=== PATIENT | male | born 1955 | race Caucasian/White ===

== ENCOUNTER 2019-04-12 05:31 | Emergency (ER) | payer OTHER ==
[~2019-04-12] VITALS: Ht 188 cm; Wt 104.3 kg
[2019-04-12] MEDS ORDERED: PROMETHAZINE HCL 25 MG/ML 1ML IV ONE ×2 (06:00→07:15)
[2019-04-12 06:55] LABS: Basophils # (auto) 0 uL; Basophils % (auto) 0.6 % (0.0-2.0); Eosinophils # (auto) 0.2 uL; Eosinophils % (auto) 2.1 % (0.0-7.0); Lymphocytes # (auto) 0.8 uL; Lymphocytes % (auto) 10.4 % (10.0-50.0); Mean Corpuscular Hemoglobin 30.9 pg (28.0-32.0); Mean Corpuscular Volume 90.7 fL (80.0-100.0); Monocytes # (auto) 0.9 uL; Monocytes % (auto) 11.6 % (0.0-12.0); Neutrophils # (auto) 5.8 uL; Neutrophils % (auto) 75.3 % (37.0-80.0); Platelet Count (auto) 223 10^3/uL (140-450); Red Blood Cells 4.85 10^6/uL (4.5-5.90); Red Cell Distribution Width 15.6 % (11.8-14.3); White Blood Cell 7.8 10^3/uL (4.4-10.8)
[2019-04-12] MEDS ORDERED: SODIUM CHLORIDE 0.9% 1,000 ML IV ONE ×2 (07:11)
[2019-04-12 07:16] LABS: Albumin 3.2 g/dL (3.4-5.0); Calcium 9.5 mg/dL (8.5-10.1); Potassium 3.8 mmol/L (3.5-5.1)
[2019-04-12 07:19] LABS: BUN/Creatinine Ratio 18.8; Bilirubin, Total 4.3 mg/dL (0.2-1.0); Total Protein 7.4 g/dL (6.4-8.2)
[2019-04-12] MEDS ORDERED: PROCHLORPERAZINE EDISYLATE 5 MG/ML 2ML VIAL ONE (08:56)
[2019-04-12] MEDS ORDERED: FAMOTIDINE (10MG/ML) 2ML VL IV ONE (09:00)
[2019-04-12] MEDS ORDERED: PROCHLORPERAZINE EDISYLATE 5 MG/ML 2ML VIAL IV ONE (09:00)
[2019-04-12 10:00] VITALS: BP 130/75
== END 2019-04-12 11:23 | disposition home or self-care (01) ==
LOC: ER 05:31
DX: K86.89 Other specified diseases of pancreas (principal); R74.8 Abnormal levels of other serum enzymes; R11.2 Nausea with vomiting, unspecified; I10 Essential (primary) hypertension; Z90.49 Acquired absence of other specified parts of digestive tract
CPT/HCPCS: 36415; 74018; 80053; 84484; 85025; 93005; 96361; 96374; 96375; 96376; 99284; J0780; J2550; J3490; J7030

== ENCOUNTER 2019-04-21 23:34 | Inpatient (IN) | payer OTHER ==
[~2019-04-21] VITALS: Ht 188 cm; Wt 106.0 kg
[2019-04-22 01:11] LABS: Basophils # (auto) 0 uL; Basophils % (auto) 0.4 % (0.0-2.0); Eosinophils # (auto) 0 uL; Eosinophils % (auto) 0.3 % (0.0-7.0); Hemoglobin 13.4 g/dL (13.5-17.5); Lymphocytes # (auto) 0.7 uL; Lymphocytes % (auto) 8.2 % (10.0-50.0); Mean Corpuscular Hgb Conc. 34.4 g/dL (32.0-36.0); Mean Corpuscular Volume 90.2 fL (80.0-100.0); Monocytes % (auto) 11.3 % (0.0-12.0); Neutrophils % (auto) 79.8 % (37.0-80.0); Nucleated Red Blood Cells % 0.1 %; Platelet Count (auto) 180 10^3/uL (140-450); Red Blood Cells 4.32 10^6/uL (4.5-5.90); Red Cell Distribution Width 15.1 % (11.8-14.3); White Blood Cell 8.8 10^3/uL (4.4-10.8)
[2019-04-22 01:27] LABS: INR 1.06 (0.9-1.15); Partial Thromboplastin Time 29.4 sec (23.64-32.05)
[2019-04-22 01:30] LABS: Albumin 2.8 g/dL (3.4-5.0); Anion Gap 9 (5-15); BUN/Creatinine Ratio 9.5; Blood Urea Nitrogen 10 mg/dL (7-18); Calcium 8.2 mg/dL (8.5-10.1); Carbon Dioxide 23 mmol/L (21-32); Chloride 105 mmol/L (98-107); GFR African American 92 mL/min; GFR Non-African American 76 mL/min; Glucose 108 mg/dL (74-106); Potassium 3.8 mmol/L (3.5-5.1); Sodium 137 mmol/L (136-145)
[2019-04-22 01:35] LABS: Alanine Aminotransferase 79 U/L (16-61); Alkaline Phosphatase 117 U/L (45-117); Aspartate Aminotransferase 48 U/L (15-37); Bilirubin, Total 1.8 mg/dL (0.2-1.0); Total Protein 7.3 g/dL (6.4-8.2)
[2019-04-22] MEDS ORDERED: FAMOTIDINE (10MG/ML) 2ML VL IV ONE (02:30)
[2019-04-22] MEDS ORDERED: METOCLOPRAMIDE HCL 5MG/ml INJ 2ml VIAL IV ONE (02:30)
[2019-04-22] MEDS ORDERED: SODIUM CHLORIDE 0.9% 1,000 ML IV ONE (02:30)
[2019-04-22 02:51] LABS: Amylase 56 U/L (25-115); Lipase 369 U/L (73-393)
[2019-04-22] MEDS ORDERED: HYDROcodone-ACET 5/325MG TAB PO PRN (05:45)
[2019-04-22] MEDS ORDERED: TEMAZEPAM 15 MG CAP PO PRN (05:45)
[2019-04-22] MEDS ORDERED: MORPHINE SULFATE 4 MG/ML SYR/VIAL IV PRN (05:45)
[2019-04-22] MEDS ORDERED: ONDANSETRON HCL 4 MG/2 ML VIAL IV PRN (05:45)
[2019-04-22] MEDS ORDERED: ACETAMINOPHEN 325 MG TAB PO PRN (05:45)
[2019-04-22 06:48] LABS: Urine Bacteria NONE SEEN /hpf (None Seen); Urine Blood Negative /uL (Negative); Urine Hyaline Cast FEW /lpf (0 - 2); Urine Mucus FEW (None Seen); Urine Specific Gravity 1.021 (1.001-1.035); Urine WBC 1 /hpf (0 - 3)
[2019-04-22] MEDS: LEVOTHYROXINE SODIUM 25 MCG TAB PO SCH (07:05)
--- NOTE | 2019-04-22 08:12 | NUR ---
RECEIVED REPORT FROM PATRICIA GALAN.
--- NOTE | 2019-04-22 08:20 | NUR ---
MS admit from ER [facility] admitted to tele/MS after SBAR received. Patient oriented to DUKE GAN, primary RN, unit, room, bed, and unit policies regarding patient care and visiting hours. Patient weighed by bedscale and encouraged to call if they need something. All questions and concerns addressed, patient verbalized understanding.
[2019-04-22 09:00] VITALS: BP 113/67
[2019-04-22] MEDS: cefTRIAXone 1GM/50ML D5W 50 ML IV SCH (09:11)
[2019-04-22] MEDS: FAMOTIDINE 20 MG TAB PO SCH ×2 (09:59→21:10)
[2019-04-22 10:49] VITALS: BP 113/67
[2019-04-22 13:00] VITALS: BP 113/72
[2019-04-22 17:00] VITALS: BP 118/56
--- NOTE | 2019-04-22 19:20 | NUR ---
Opening Shift Note Report received from day shift RN. Assumed care of patient. Patient awake sitting in bed and alert x4. No S/S of distress/SOB noted. Patient denies pain and nausea at this time. Instructed on POC and to call for assist PRN. Call light left within reach. Will continue to monitor for changes Q1hr and PRN.
[2019-04-22 22:00] VITALS: BP 101/56
[2019-04-23 05:21] LABS: Basophils # (auto) 0.1 uL; Basophils % (auto) 0.7 % (0.0-2.0); Eosinophils # (auto) 0.2 uL; Eosinophils % (auto) 2.2 % (0.0-7.0); Hematocrit 34.7 % (41.0-53.0); Hemoglobin 11.9 g/dL (13.5-17.5); Lymphocytes # (auto) 1.2 uL; Lymphocytes % (auto) 16.4 % (10.0-50.0); Mean Corpuscular Hemoglobin 31.1 pg (28.0-32.0); Mean Corpuscular Hgb Conc. 34.4 g/dL (32.0-36.0); Mean Corpuscular Volume 90.3 fL (80.0-100.0); Monocytes # (auto) 0.9 uL; Neutrophils # (auto) 4.8 uL; Neutrophils % (auto) 67.7 % (37.0-80.0); Platelet Count (auto) 132 10^3/uL (140-450); Red Blood Cells 3.84 10^6/uL (4.5-5.90); Red Cell Distribution Width 15.1 % (11.8-14.3); White Blood Cell 7.1 10^3/uL (4.4-10.8)
[2019-04-23 05:42] LABS: Albumin 2.5 g/dL (3.4-5.0); Calcium 8.1 mg/dL (8.5-10.1); Potassium 3.9 mmol/L (3.5-5.1)
[2019-04-23 05:43] LABS: BUN/Creatinine Ratio 9.3
[2019-04-23 05:52] LABS: Bilirubin, Total 1.3 mg/dL (0.2-1.0); Total Protein 6.5 g/dL (6.4-8.2)
[2019-04-23 06:04] VITALS: BP 114/58
[2019-04-23] MEDS: LEVOTHYROXINE SODIUM 25 MCG TAB PO SCH (06:28)
--- NOTE | 2019-04-23 07:20 | NUR ---
Opening Shift Note Received report from NOC RN and this RN/rack carrier introduced to patient. Patient awake, alert and oriented sitting up in bed without S/S of distress. Discussed POC with patient, who verbalized understanding and knows to call if needing further assistance.
[2019-04-23 08:05] VITALS: BP 102/64
[2019-04-23 09:00] VITALS: BP 102/64
--- NOTE | 2019-04-23 10:25 | NUR ---
[employer] Carolynn at bedside with patient for dietary consult.
[2019-04-23] MEDS: FAMOTIDINE 20 MG TAB PO SCH (10:27)
[2019-04-23] MEDS: cefTRIAXone 1GM/50ML D5W 50 ML IV SCH (10:27)
--- NOTE | 2019-04-23 10:30 | NUR ---
Dr. Booth at bedside discussing plan of care with patient.
[2019-04-23 11:46] VITALS: BP 102/64
[2019-04-23 12:00] VITALS: BP 115/74
--- NOTE | 2019-04-23 13:20 | NUR ---
Discharge Note Discharge instructions given as ordered. Encourage to follow up with PMD as instructed. All questions and concerns addressed. Patient verbalized understanding. Medication reconciliation form completed and copy given to patient.IV removed with catheter intact, pressure dressing applied. Patient taken to vehicle via wheelchair with all personal belongings, accompanied by staff. No distress noted at time of departure.
== END 2019-04-23 13:20 | disposition home or self-care (01) | DRG 861 ==
LOC: ER 23:34 → EDBD 23:34 → OBSVTOIN 23:35 → OVERFLOW 23:35 → WEST WING 04-22 08:49
PROVIDERS: ADMIT Nurse Practitioner; ATTEND Internal Medicine Pulmonary Disease
DX: G89.3 Neoplasm related pain (acute) (chronic) (principal); E43 Unspecified severe protein-calorie malnutrition; C25.9 Malignant neoplasm of pancreas, unspecified; K72.90 Hepatic failure, unspecified without coma; N28.1 Cyst of kidney, acquired; R16.1 Splenomegaly, not elsewhere classified; E03.9 Hypothyroidism, unspecified; K40.20 Bilateral inguinal hernia, without obstruction or gangrene, not specified as recurrent; E78.5 Hyperlipidemia, unspecified; I10 Essential (primary) hypertension; J98.11 Atelectasis; Z85.07 Personal history of malignant neoplasm of pancreas; Z90.49 Acquired absence of other specified parts of digestive tract; Z79.899 Other long term (current) drug therapy
CPT/HCPCS: 36415; 71045; 74176; 76775; 80053; 81001; 82150; 83690; 84484; 85025; 85610; 85730; 93005; 96361; 96374; 96375; G0378; J0696; J2405; J3490

== ENCOUNTER 2019-05-11 15:38 | Inpatient (IN) | payer OTHER ==
[~2019-05-11] VITALS: Ht 182.9 cm; Wt 95.4 kg
[2019-05-11] MEDS ORDERED: SODIUM CHLORIDE 0.9% 1,000 ML IV ONE (19:55)
[2019-05-11 21:17] LABS: Basophils # (auto) 0.2 uL; Basophils % (auto) 1.1 % (0.0-2.0); Eosinophils # (auto) 0.6 uL; Eosinophils % (auto) 3.8 % (0.0-7.0); Hematocrit 44.7 % (41.0-53.0); Hemoglobin 15.6 g/dL (13.5-17.5); Lymphocytes # (auto) 2.1 uL; Lymphocytes % (auto) 14.2 % (10.0-50.0); Mean Corpuscular Hemoglobin 30.7 pg (28.0-32.0); Mean Corpuscular Hgb Conc. 34.9 g/dL (32.0-36.0); Mean Corpuscular Volume 87.9 fL (80.0-100.0); Monocytes # (auto) 1.6 uL; Monocytes % (auto) 10.8 % (0.0-12.0); Neutrophils # (auto) 10.3 uL; Neutrophils % (auto) 70.1 % (37.0-80.0); Nucleated Red Blood Cells % 0.3 %; Platelet Count (auto) 305 10^3/uL (140-450); Red Blood Cells 5.08 10^6/uL (4.5-5.90); Red Cell Distribution Width 14.9 % (11.8-14.3); White Blood Cell 14.7 10^3/uL (4.4-10.8)
[2019-05-11 21:38] LABS: Albumin 3.6 g/dL (3.4-5.0); Magnesium 3.3 mg/dL (1.6-2.6); Potassium 3.2 mmol/L (3.5-5.1)
[2019-05-11 21:42] LABS: BUN/Creatinine Ratio 36.6; Bilirubin, Total 1.1 mg/dL (0.2-1.0)
[2019-05-11] MEDS ORDERED: POTASSIUM CHL 20MEQ/100ML 100 ML IV ONE (22:00)
[2019-05-11] MEDS ORDERED: ONDANSETRON HCL 4 MG/2 ML VIAL IV PRN (23:45)
[2019-05-11] MEDS ORDERED: SODIUM CHLORIDE 0.9% 1,000 ML IV SCH (23:45)
[2019-05-11] MEDS ORDERED: PPN PER PHARMACY 0 ML IV SCH (23:45)
[2019-05-11] MEDS ORDERED: TEMAZEPAM 15 MG CAP PO PRN (23:45)
[2019-05-11] MEDS ORDERED: ACETAMINOPHEN 325 MG TAB PO PRN (23:45)
[2019-05-11] MEDS ORDERED: HYDROcodone-ACET 5/325MG TAB PO PRN (23:45)
[2019-05-12] MEDS ORDERED: SODIUM CHLORIDE 0.9% 500 ML IV ONE (01:45)
[2019-05-12 02:25] VITALS: BP 112/62
--- NOTE | 2019-05-12 02:25 | NUR ---
MS admit from [facility] admitted MS unit. Patient oriented to unit, room, bed, and unit policies regarding patient care and visiting hours. Patient weighed by bed scale and encouraged to call if they need something. All questions and concerns addressed, patient verbalized understanding.
[2019-05-12] MEDS ORDERED: cefTRIAXone 1GM/50ML D5W 50 ML IV SCH ×2 (02:30→21:00)
[2019-05-12 04:47] VITALS: BP 115/61
[2019-05-12] MEDS ORDERED: OXY5T PO (04:49)
[2019-05-12] MEDS ORDERED: DOCU100T15 PO (04:49)
[2019-05-12] MEDS ORDERED: LEVO25TA6 PO (04:49)
[2019-05-12] MEDS: SODIUM CHLORIDE 0.9% 1,000 ML IV SCH ×2 (04:49→12:52)
[2019-05-12] MEDS ORDERED: LEVOTHYROXINE SODIUM 25 MCG TAB PO SCH (06:00)
--- NOTE | 2019-05-12 07:15 | NUR ---
Open Shift Note Received report on patient, awake and sitting up in bed. Patient shows no signs of distress at this time and states having no pain. Discussed POC with patient and pending consults. Patient states he needs to go home today because he has an appointment at [facility] tomorrow for his pancreatic carcinoma. Bed in lowest locked position, side rails up x2 and call light within reach. Will continue to monitor.
[2019-05-12 07:33] LABS: Basophils # (auto) 0.1 uL; Basophils % (auto) 0.9 % (0.0-2.0); Eosinophils # (auto) 0.5 uL; Eosinophils % (auto) 5.1 % (0.0-7.0); Hemoglobin 13.4 g/dL (13.5-17.5); Lymphocytes # (auto) 1.8 uL; Lymphocytes % (auto) 17.7 % (10.0-50.0); Mean Corpuscular Hemoglobin 31.1 pg (28.0-32.0); Mean Corpuscular Hgb Conc. 35.2 g/dL (32.0-36.0); Mean Corpuscular Volume 88.3 fL (80.0-100.0); Monocytes # (auto) 1.1 uL; Monocytes % (auto) 10.8 % (0.0-12.0); Neutrophils # (auto) 6.9 uL; Neutrophils % (auto) 65.5 % (37.0-80.0); Platelet Count (auto) 198 10^3/uL (140-450); Red Cell Distribution Width 14.9 % (11.8-14.3); White Blood Cell 10.5 10^3/uL (4.4-10.8)
[2019-05-12 07:51] LABS: Calcium 8.6 mg/dL (8.5-10.1); Potassium 3.3 mmol/L (3.5-5.1)
[2019-05-12 07:57] LABS: BUN/Creatinine Ratio 38.6; Bilirubin, Total 0.9 mg/dL (0.2-1.0); Phosphorus 4.5 mg/dL (2.5-4.90); Pre Albumin 25.1 mg/dL (20.0-40.0); Total Protein 6.8 g/dL (6.4-8.2)
[2019-05-12 09:00] VITALS: BP 104/62
--- NOTE | 2019-05-12 09:30 | NUR ---
UA Sent UA sent to lab.
[2019-05-12 09:38] LABS: Urine Bacteria NONE SEEN /hpf (None Seen); Urine Blood Negative /uL (Negative); Urine Mucus FEW (None Seen); Urine Specific Gravity 1.019 (1.001-1.035); Urine WBC 2 /hpf (0 - 3)
[2019-05-12] MEDS ORDERED: PANTOPRAZOLE 40 MG TAB PO SCH (10:00)
[2019-05-12] MEDS: POTASSIUM CHL 20MEQ/100ML 100 ML IV SCH ×2 (11:58→14:44)
[2019-05-12] MEDS ORDERED: Ensure HIGH Protein Chocolate 8oz Bottle GT SCH (12:00)
[2019-05-12] MEDS ORDERED: POTASSIUM EFFERVESENT TAB 25 MEQ GT ONE (12:00)
[2019-05-12 12:36] VITALS: BP 130/74
--- NOTE | 2019-05-12 16:08 | NUR ---
assessment Patient is a 63 year old male who is alert and oriented. Patients cognitive abilities are intact. Prior to admission patient lived home with his daughter Roselyn and functioned independently. Patient informed me he is able to care for his own ADLs. Per patient he will return home to his prior living arrangements post discharge and family will transport him home. Patient has no need for DME to ambulate. Patient has been admitted for pancreatic carcinoma. Patient informed me he was diagnosed 5 or 6 weeks ago. Patient has a good understanding of his diagnosis. Patient is handling his diagnosis well. Patient and I talked about coping methods and the benefit from speaking to someone about any fears he may have. I offered emotional support. I informed patient he has a right to speak to a outreach and education social worker regarding all care. I informed patient he has a right to participate in any and all discharge planning. Patient does not have a POA and advanced directive. I have offered patient information on POA and advanced directives. I informed the patient the advantages and benefits of having an Advanced Directive. Patient verbalized understanding and agreed to discharge plan home. Addendum: 05/12/19 at 1612 by Jhoana WOODRUFF Amended: Links added.
[2019-05-12 17:00] VITALS: BP 112/63
--- NOTE | 2019-05-12 17:45 | NUR ---
Discharged Discharge instructions given as ordered. Encourage to follow up with PMD as instructed. Patient has appointment tomorrow at [facility] [place]. All questions and concerns addressed. Patient verbalized understanding. No new prescriptions ordered, patient instructed to continue home medications. IV removed with catheter intact, pressure dressing applied. Patient taken to lobby via wheelchair with all personal belongings, accompanied by staff. No distress noted at time of departure.
[2019-05-12] MEDS ORDERED: DEXTROSE (50%) 50ML SYRG IV SCH (20:00)
[2019-05-12] MEDS ORDERED: PPN PER PHARMACY IV NR ×7 (20:00)
[2019-05-13] MEDS ORDERED: InsuLIN REG 1unit/0.01ml Soln (100units/ml) SC SCH
[2019-05-13] MEDS ORDERED: ACCU-CHEK COMFORT CURVE STRIP VI SCH
[2019-05-13] MEDS ORDERED: cefTRIAXone 1GM/50ML D5W 50 ML IV SCH (09:00)
== END 2019-05-12 17:40 | disposition home or self-care (01) | DRG 469 ==
LOC: EDBD 15:38 → ER 15:48 → OVERFLOW 15:49 → EAST 23:58
PROVIDERS: ADMIT Nurse Practitioner; ATTEND Internal Medicine
DX: N17.0 Acute kidney failure with tubular necrosis (principal); C25.9 Malignant neoplasm of pancreas, unspecified; E87.1 Hypo-osmolality and hyponatremia; E87.8 Other disorders of electrolyte and fluid balance, not elsewhere classified; N28.1 Cyst of kidney, acquired; J93.9 Pneumothorax, unspecified; E86.0 Dehydration; E87.6 Hypokalemia; R79.89 Other specified abnormal findings of blood chemistry; I10 Essential (primary) hypertension; E03.9 Hypothyroidism, unspecified; Z85.07 Personal history of malignant neoplasm of pancreas; Z87.891 Personal history of nicotine dependence; Z90.49 Acquired absence of other specified parts of digestive tract
CPT/HCPCS: 36415; 71045; 74176; 80053; 81001; 82040; 83735; 84100; 84478; 85025; 87081; 96361; 96365; G0378; J0696; J3480; J7131

== ENCOUNTER 2019-06-09 12:36 | Inpatient (IN) | payer OTHER ==
[~2019-06-09] VITALS: Ht 188 cm; Wt 80.9 kg
[~2019-06-09 12:36] MED LIST: DOCU100T15 PO; LEVO25TA6 PO; OXY5T PO
[2019-06-09 13:14] LABS: Basophils # (auto) 0.1 uL; Basophils % (auto) 0.6 % (0.0-2.0); Eosinophils # (auto) 0 uL; Eosinophils % (auto) 0.3 % (0.0-7.0); Hematocrit 43.4 % (41.0-53.0); Hemoglobin 15.2 g/dL (13.5-17.5); Lymphocytes # (auto) 1.5 uL; Lymphocytes % (auto) 10.1 % (10.0-50.0); Mean Corpuscular Hemoglobin 31.3 pg (28.0-32.0); Mean Corpuscular Volume 89.5 fL (80.0-100.0); Monocytes # (auto) 1.4 uL; Monocytes % (auto) 9.7 % (0.0-12.0); Neutrophils # (auto) 11.5 uL; Neutrophils % (auto) 79.3 % (37.0-80.0); Platelet Count (auto) 355 10^3/uL (140-450); Red Blood Cells 4.85 10^6/uL (4.5-5.90); White Blood Cell 14.5 10^3/uL (4.4-10.8)
[2019-06-09] MEDS ORDERED: SODIUM CHLORIDE 0.9% 1,000 ML IVB ONE (13:19)
[2019-06-09 13:29] LABS: Albumin 3.3 g/dL (3.4-5.0); BUN/Creatinine Ratio 32.1; Calcium 9.3 mg/dL (8.5-10.1); Magnesium 2.6 mg/dL (1.6-2.6)
[2019-06-09] MEDS ORDERED: PROMETHAZINE HCL 25 MG/ML 1ML IV PRN (13:30)
[2019-06-09 13:32] LABS: Bilirubin, Total 1.8 mg/dL (0.2-1.0); Total Protein 8.4 g/dL (6.4-8.2)
[2019-06-09 13:35] LABS: Lactic Acid w/Reflex 3.5 mmol/L (0.4-2.0)
[2019-06-09 13:38] LABS: Potassium 2.6 mmol/L (3.5-5.1)
[2019-06-09 14:41] LABS: Lipase 942 U/L (73-393)
[2019-06-09] MEDS ORDERED: MORPHINE SULF INJ 2 MG/ML SYRINGE 1ML IV PRN (17:15)
[2019-06-09] MEDS ORDERED: NITROGLYCERIN 0.4 MG SL TAB SL PRN (17:15)
[2019-06-09] MEDS ORDERED: SODIUM CHLORIDE 0.9% 1,000 ML IV ONE (17:15)
[2019-06-09] MEDS ORDERED: HYDROmorphone HCL 2 MG/ML VL IV PRN (17:15)
[2019-06-09] MEDS: POTASSIUM CHL 20MEQ/100ML 100 ML IV SCH ×3 (18:04→21:58)
--- NOTE | 2019-06-09 19:20 | NUR ---
Called dietary to request Jevity formula. No answer. Charge nurse, Manoj notified, who instructed to call bunk house worker, Jaymie after report and request that she attempt to retrieve the formula.
--- NOTE | 2019-06-09 20:00 | NUR ---
SKIN ASSESSMENT Patient refused full skin assessment. Skin is intact from what can be seen. Unable to assess elisa-area, buttocks and upper legs.
--- NOTE | 2019-06-09 21:20 | NUR ---
Spoke with car installations supervisor, Jaymie regarding Jevity formula. Formula is not available on the unit at this time. Jaymie will attempt to locate and bring to the floor.
[2019-06-09] MEDS: FAMOTIDINE (10MG/ML) 2ML VL IV SCH (21:59)
[2019-06-09 22:00] VITALS: BP 98/68
--- NOTE | 2019-06-09 22:00 | NUR ---
Urine sample and MRSA swab sent to lab.
[2019-06-09 22:26] LABS: Urine Bacteria NONE SEEN /hpf (None Seen); Urine Blood Negative /uL (Negative); Urine Hyaline Cast MOD /lpf (0 - 2); Urine Specific Gravity 1.017 (1.001-1.035); Urine WBC 2 /hpf (0 - 3)
[2019-06-10] MEDS: PIPERACILLIN-TAZOB 3.375GM 100 ML IV SCH ×5 (00:53→17:33)
[2019-06-10] MEDS: SOD CHL 0.9%/ KCL 40MEQ 1,000 ML IV SCH ×2 (00:53→08:55)
[2019-06-10] MEDS: Jevity 1.2 Cal/Fiber 1 Liter GT SCH (01:16)
[2019-06-10 05:24] LABS: Basophils # (auto) 0.1 uL; Basophils % (auto) 0.8 % (0.0-2.0); Eosinophils # (auto) 0.2 uL; Eosinophils % (auto) 2.1 % (0.0-7.0); Hematocrit 36.7 % (41.0-53.0); Hemoglobin 13.1 g/dL (13.5-17.5); Lymphocytes # (auto) 2.1 uL; Mean Corpuscular Hgb Conc. 35.6 g/dL (32.0-36.0); Mean Corpuscular Volume 89.9 fL (80.0-100.0); Monocytes # (auto) 1.1 uL; Monocytes % (auto) 10.3 % (0.0-12.0); Neutrophils # (auto) 7.3 uL; Neutrophils % (auto) 67.8 % (37.0-80.0); Platelet Count (auto) 261 10^3/uL (140-450); Red Blood Cells 4.08 10^6/uL (4.5-5.90); Red Cell Distribution Width 14.4 % (11.8-14.3); White Blood Cell 10.8 10^3/uL (4.4-10.8)
[2019-06-10 05:48] LABS: Potassium 3.1 mmol/L (3.5-5.1)
[2019-06-10 05:55] LABS: Albumin 2.7 g/dL (3.4-5.0); BUN/Creatinine Ratio 35.7; Bilirubin, Total 1.1 mg/dL (0.2-1.0); Calcium 8.4 mg/dL (8.5-10.1); Magnesium 2.7 mg/dL (1.6-2.6)
[2019-06-10 06:00] VITALS: BP 97/61
--- NOTE | 2019-06-10 08:00 | NUR ---
Morning note patient resting in bed with even and unlabored respirations, no distress noted. Instructed patient on POC, fall precautions and to call for assistance as needed. Patient verbalized understanding. Fall precautions in place with call light within reach. Will continue to monitor q1hr & PRN.
[2019-06-10] MEDS: FAMOTIDINE (10MG/ML) 2ML VL IV SCH ×2 (08:46→21:47)
--- NOTE | 2019-06-10 08:55 | NUR ---
Gastric tube drained per MD order 125ml of green fluid drained. Patient tolerated well.
[2019-06-10 09:00] VITALS: BP 99/64
[2019-06-10] MEDS ORDERED: POTASSIUM EFFERVESENT TAB 25 MEQ GT ONE (10:45)
[2019-06-10] MEDS ORDERED: POTASSIUM CHLORIDE 40 MEQ, LIDOCAINE 1% (LOCAL ANESTH.) 4 ML in SODIUM CHL 0.9% 100 ML IV ONE ×2 (10:45→12:15)
[2019-06-10 11:22] LABS: Basophils # (auto) 0.1 uL; Basophils % (auto) 0.7 % (0.0-2.0); Eosinophils # (auto) 0.2 uL; Eosinophils % (auto) 1.8 % (0.0-7.0); Hematocrit 38.3 % (41.0-53.0); Hemoglobin 13.3 g/dL (13.5-17.5); Lymphocytes # (auto) 1.8 uL; Lymphocytes % (auto) 16.8 % (10.0-50.0); Mean Corpuscular Hemoglobin 31.2 pg (28.0-32.0); Mean Corpuscular Hgb Conc. 34.6 g/dL (32.0-36.0); Mean Corpuscular Volume 90.2 fL (80.0-100.0); Monocytes # (auto) 1.1 uL; Monocytes % (auto) 10.2 % (0.0-12.0); Neutrophils # (auto) 7.5 uL; Neutrophils % (auto) 70.5 % (37.0-80.0); Platelet Count (auto) 259 10^3/uL (140-450); Red Blood Cells 4.24 10^6/uL (4.5-5.90); Red Cell Distribution Width 14.4 % (11.8-14.3); White Blood Cell 10.6 10^3/uL (4.4-10.8)
[2019-06-10 11:35] LABS: Albumin 2.9 g/dL (3.4-5.0); Calcium 8.9 mg/dL (8.5-10.1); Potassium 3.6 mmol/L (3.5-5.1)
[2019-06-10 11:39] LABS: Bilirubin, Total 1.2 mg/dL (0.2-1.0); Total Protein 7.2 g/dL (6.4-8.2)
--- NOTE | 2019-06-10 11:40 | NUR ---
NUTRITION CONSULT/ASSESSMENT NOTES Please refer to link notes of nutrition screen form filed under the intervention section of the plan of care for further details. Est. Needs: 2250 kcal to 2700 kcal (25-30 kcal/kgBW), 90 gms to 108 gms pro (1.0-1.2 gms/kgBW). Will continue to monitor pertinent labs and reassess nutrient need prn Thank you for this consult. Addendum: 06/10/19 at [address] Amended: Links added.
--- NOTE | 2019-06-10 12:05 | NUR ---
was at bedside - Dr. Soria Order received and read back to verify.
[2019-06-10 12:06] LABS: INR 1.37 (0.9-1.15); Partial Thromboplastin Time 29.7 sec (23.64-32.05)
--- NOTE | 2019-06-10 12:13 | NUR ---
Troy Cool RE: K-rider Received phone call from pharmacy RE: inappropriate K-rider dosage and the current lab value.
--- NOTE | 2019-06-10 12:16 | NUR ---
Spoke with RE: Lisa Spoke with Dr. Cool RE: Lisa dose and current lab value. MD to cancel medications.
--- NOTE | 2019-06-10 12:18 | NUR ---
RE: Potassium Effervesent Medication opened to be administered. Patient requested to use the restroom prior to administration. Medication wasted in medication pyxis.
[2019-06-10 13:00] VITALS: BP 91/64
--- NOTE | 2019-06-10 15:24 | NUR ---
RE: arrhythmia Telemonitor tech notified this RN that telemetry reading showed 2 seconds of V-Fib. Assessed patient. Patient asymptomatic. Patient resting in bed with even and unlabored respirations, no distress noted. Call light within reach.
[2019-06-10] MEDS: SODIUM CHLORIDE 0.9% 1,000 ML IV SCH (16:29)
[2019-06-10] MEDS: ONDANSETRON HCL 4 MG/2 ML VIAL IV PRN (16:29)
[2019-06-10 17:00] VITALS: BP 84/57
--- NOTE | 2019-06-10 17:25 | NUR ---
Patient resting in bed with eyes closed Respirations even and unlabored, no distress noted. Call light within reach.
--- NOTE | 2019-06-10 18:52 | NUR ---
Closing note patient resting in bed with even and unlabored respirations; eyes closed. Fall precautions in place with call light within reach. Jevity 1.2cal being administered per MD order.
--- NOTE | 2019-06-10 19:04 | NUR ---
ARRHYTHMIA Received report from community theater actor that tele school lunch monitor called to report a 5 beat run of v-tach. Checked on patient who is resting comfortably with eyes closed. Vital signs are as follows: Heart rate: 84, BP: 92/65, Respirations: 14 Spo2: 95% on room air. Denies SOB, dizziness, or chest pain. Currently in sinus rhythm at [address] segment. Will continue to monitor.
--- NOTE | 2019-06-10 19:05 | NUR ---
Care endorsed to PATRICIA Alvarez.
--- NOTE | 2019-06-10 19:10 | NUR ---
Patient is A&O x4, currently on RA with no s/s of distress or SOB noted. Denies pain at this time. Patient emptied 850ml green fluid from gastric tube. J-tube is in place and patent, currently infusing Jevity 1.2 elias per MD orders. Bed is in low locked position with side rails up x2. Call light is within reach and patient encouraged to call for assistance when needed. Will continue to monitor for changes PRN.
[2019-06-10 22:27] VITALS: BP 96/65
--- NOTE | 2019-06-11 01:35 | NUR ---
J-tube flushed with 60ml of water' tubing to feeding changed. Patient tolerated well. 200ml jennifer colored urine emptied from urinal.
--- NOTE | 2019-06-11 03:02 | NUR ---
Patient complains of nausea. Medicated per orders. 650ml of green liquid emptied from gastric tube.
[2019-06-11] MEDS: ONDANSETRON HCL 4 MG/2 ML VIAL IV PRN ×3 (03:06→23:36)
[2019-06-11 05:16] VITALS: BP 92/67
[2019-06-11] MEDS: PIPERACILLIN-TAZOB 3.375GM 100 ML IV SCH ×5 (05:46→23:28)
[2019-06-11 06:36] LABS: Basophils # (auto) 0.1 uL; Basophils % (auto) 0.6 % (0.0-2.0); Eosinophils # (auto) 0.2 uL; Eosinophils % (auto) 1.8 % (0.0-7.0); Hematocrit 40.2 % (41.0-53.0); Hemoglobin 14.1 g/dL (13.5-17.5); Lymphocytes # (auto) 2.2 uL; Lymphocytes % (auto) 19.6 % (10.0-50.0); Mean Corpuscular Hemoglobin 31.6 pg (28.0-32.0); Mean Corpuscular Hgb Conc. 35.1 g/dL (32.0-36.0); Mean Corpuscular Volume 89.9 fL (80.0-100.0); Neutrophils # (auto) 7.8 uL; Platelet Count (auto) 303 10^3/uL (140-450); Red Blood Cells 4.47 10^6/uL (4.5-5.90); Red Cell Distribution Width 14.5 % (11.8-14.3); White Blood Cell 11.3 10^3/uL (4.4-10.8)
[2019-06-11 07:08] LABS: Albumin 3.1 g/dL (3.4-5.0); BUN/Creatinine Ratio 24.6; Bilirubin, Total 1.2 mg/dL (0.2-1.0); Magnesium 3.1 mg/dL (1.6-2.6); Phosphorus 4.7 mg/dL (2.5-4.90); Total Protein 7.8 g/dL (6.4-8.2)
[2019-06-11 07:26] LABS: Potassium 2.7 mmol/L (3.5-5.1)
--- NOTE | 2019-06-11 07:28 | NUR ---
Critical lab result/Notified MD Received a critical potassium lab result and critical CO2 lab result. Notified Dr. Soria. verbalized understanding. Order received and read back to verify.
--- NOTE | 2019-06-11 07:54 | NUR ---
Medication not available - called pharmacy to notify K-rider has not been verified by pharmacy. Spoke with Reina. Medication to be verified by pharmacist.
[2019-06-11] MEDS: FAMOTIDINE (10MG/ML) 2ML VL IV SCH (08:14)
[2019-06-11] MEDS: POTASSIUM CHL 20MEQ/100ML 100 ML IV SCH ×3 (08:15→12:17)
[2019-06-11] MEDS: SODIUM CHLORIDE 0.9% 1,000 ML IV SCH (08:26)
[2019-06-11] MEDS: Jevity 1.2 Cal/Fiber 1 Liter GT SCH (08:29)
[2019-06-11 09:00] VITALS: BP 104/71
[2019-06-11] MEDS ORDERED: POTASSIUM EFFERVESENT TAB 25 MEQ GT ONE (09:15)
[2019-06-11] MEDS ORDERED: SOD CHL 0.9%/ KCL 40MEQ 1,000 ML IV SCH ×2 (09:30→09:45)
[2019-06-11] MEDS ORDERED: DOCUSATE SOD 100 MG CAP PO PRN (11:00)
--- NOTE | 2019-06-11 11:13 | NUR ---
was at bedside - Dr. Travon CORNEJO discussed with the patient. Code status discussed with the patient. This RN was at bedside.
--- NOTE | 2019-06-11 11:35 | NUR ---
Urine specimen collected and sent to lab per MD order.
[2019-06-11 12:21] LABS: Creatinine, Urine 84 mg/dL (30.0-125.0); Sodium Urine 32 mmol/L (40-220)
[2019-06-11 13:00] VITALS: BP 99/66
--- NOTE | 2019-06-11 13:13 | NUR ---
was at bedside - Dr. Estella CORNEJO discussed with the patient. Hospice/palliative care discussed. This RN was at bedside.
[2019-06-11 15:34] LABS: BUN/Creatinine Ratio 24.2; Calcium 9.2 mg/dL (8.5-10.1); Potassium 3.6 mmol/L (3.5-5.1)
--- NOTE | 2019-06-11 16:20 | NUR ---
Notified of critical CO2 result by PATRICIA Encinas. Ce GOMEZ received critical CO2 for this RN. Message received at this time. No change in patient's CO2 level from previous lab draw. MD's aware of critical CO2 level.
[2019-06-11 17:00] VITALS: BP 98/62
[2019-06-11] MEDS ORDERED: DOCUSATE ORAL LIQUID 100 MG/10 ML UD GT PRN (18:45)
--- NOTE | 2019-06-11 19:15 | NUR ---
Opening Shift Note Received report from rebeca Benson RN. Assumed care of patient, awake and alert. No S/S of distress/SOB or pain. Instructed on POC and to call for assist PRN, will continue to monitor for changes Q1hr and PRN. Bed placed in lowest position, and call light within reach.
--- NOTE | 2019-06-11 19:15 | NUR ---
Care endorsed PATRICIA Mcdermott.
[2019-06-11 21:38] VITALS: BP 102/69
--- NOTE | 2019-06-11 23:00 | NUR ---
Complete bed changed done r/t leaks of gastric contents from the cylinder
[2019-06-11] MEDS: PANTOPRAZOLE 40 MG/10 ML VIAL INJ IV SCH (23:28)
[2019-06-12] MEDS: SOD CHL 0.9%/ KCL 40MEQ 1,000 ML IV SCH ×4 (00:37→22:20)
[2019-06-12 04:23] VITALS: BP 103/67
[2019-06-12] MEDS: PIPERACILLIN-TAZOB 3.375GM 100 ML IV SCH ×2 (05:32→11:13)
[2019-06-12 05:37] LABS: Basophils # (auto) 0 uL; Basophils % (auto) 0.2 % (0.0-2.0); Eosinophils # (auto) 0.1 uL; Eosinophils % (auto) 0.7 % (0.0-7.0); Hematocrit 41.8 % (41.0-53.0); Hemoglobin 14.3 g/dL (13.5-17.5); Lymphocytes # (auto) 1.9 uL; Lymphocytes % (auto) 11.1 % (10.0-50.0); Mean Corpuscular Hemoglobin 31.1 pg (28.0-32.0); Mean Corpuscular Hgb Conc. 34.2 g/dL (32.0-36.0); Monocytes % (auto) 6.1 % (0.0-12.0); Neutrophils # (auto) 13.7 uL; Neutrophils % (auto) 81.9 % (37.0-80.0); Nucleated Red Blood Cells % 0.2 %; Platelet Count (auto) 306 10^3/uL (140-450); Red Cell Distribution Width 14.7 % (11.8-14.3); White Blood Cell 16.7 10^3/uL (4.4-10.8)
[2019-06-12 06:07] LABS: Potassium 3.2 mmol/L (3.5-5.1)
[2019-06-12 06:18] LABS: Albumin 3.1 g/dL (3.4-5.0); BUN/Creatinine Ratio 21.1; Bilirubin, Total 1.3 mg/dL (0.2-1.0); Calcium 9.1 mg/dL (8.5-10.1)
[2019-06-12 06:25] LABS: Magnesium 4.1 mg/dL (1.6-2.6)
[2019-06-12] MEDS: ONDANSETRON HCL 4 MG/2 ML VIAL IV PRN (07:29)
--- NOTE | 2019-06-12 07:35 | NUR ---
Zofran given for N/V. Will monitor. Patient is alert and oriented, no distress noted and patient denies pain.
--- NOTE | 2019-06-12 08:05 | NUR ---
OPENING SHIFT NOTE ASSUMED CARE OF PT. PT IS AWAKE AND ALERT. NO SOB OR SIGNS OF DISTRESS NOTED. PT DENIES NAUSEA. INSTRUCTED ON POC AND TO CALL FOR HELP PRN. BED IN LOWEST POSITION WITH SIDE RAILS UP X2. CALL LIGHT WITHIN REACH. WILL CONTINUE TO MONITOR.
[2019-06-12 09:00] VITALS: BP 98/70
[2019-06-12] MEDS ORDERED: FAMOTIDINE (10MG/ML) 2ML VL IV SCH (10:00)
[2019-06-12] MEDS: PANTOPRAZOLE 40 MG/10 ML VIAL INJ IV SCH ×2 (10:04→22:20)
--- NOTE | 2019-06-12 11:31 | NUR ---
Nutrition Follow-up Notes Wt.: 80.9 kg Pt was sleeping with no family by bedside. per records pt s/p lap daniella. pt`s currently NPO with EN support Jevity 1.2 Dami @ 30 ml/hr providing 864 kcal, 40 gms pro and 581 ml free water, tolerates feeding well. Pt with inadequate EN support d/t low initiation rate delivery of concentrated formula aeb current EN infusion meets 32% to 38% of est caloric needs and 37% to 44% of est protein needs. Est. Needs: 2250 kcal to 2700 kcal (25-30 kcal/kgBW), 90 gms to 108 gms pro (1.0-1.2 gms/kgBW). Will continue to monitor pertinent labs and reassess nutrient need prn Labs: CO2 42 H, GLU 131 H, DIANA 4.1 H, ALB 3.1 L. Skin: Anton scale 19 mod risk, skin intact per fringing machine operator. GI: Pt has no BM reported with 1830 ml gastric driange per fringing machine operator. PES: Increased nutrient needs r/t acute/chronic medical condition aeb Generalized weakness, Nausea and vomiting,Pancreatic cancer, mod hypoalbuminemia, NPO with EN suppot via JT Altered nutrition related lab values r/t current/chronic medical condition aeb hyperglycemia, hyponatremia, hypokalemia, hypercapnia, hypochloremia, elev. renal labs, LFTs, Lipase, hyperbilirubinemia, hypocalcemia and mod hypoalbuminemia Will continue to monitor NPO status, EN support, skin status, pertinent labs and weight trend. F/u in 2-3 days. Rec.: 1.) Consider gradual increase on feeding rate of Jevity 1.2 Dami to 80 ml/hr goal rate as tolerated when medically appropriate. 2.) If Albumin continues trending down with improved renal labs, consider Prostat 1 pkt BID. 3.) Refer to RD for further nutrition educ. and weight monitoring upon discharge. 4.) Continue current plan of care.
--- NOTE | 2019-06-12 12:00 | NUR ---
MD AT BEDSIDE. ORDERED FEEDING TO BE INCREASED TO 50 ML PER HOUR.
[2019-06-12] MEDS ORDERED: Jevity 1.2 Cal/Fiber 1 Liter GT SCH (12:15)
[2019-06-12 12:28] VITALS: BP 101/74
[2019-06-12] MEDS ORDERED: ONDANSETRON HCL 4 MG/2 ML VIAL IV PRN (12:30)
--- NOTE | 2019-06-12 16:45 | NUR ---
ADMINISTERED NEW BOTTLE OF JEVITY 1.2 WITH NEW TUBING AT 50 ML PER HOUR PER [address] ORDERS.
[2019-06-12 16:58] VITALS: BP 98/70
--- NOTE | 2019-06-12 18:50 | NUR ---
GASTRIC TUBE OUTPUT AT END OF SHIFT WAS 2150CC
[2019-06-12 21:26] VITALS: BP 100/68
--- NOTE | 2019-06-12 21:30 | NUR ---
Pt gastric tube draining greenish black fluid. Pt states that, " It takes awhile to drain. I will call you when I need the container emptied. " Pt with call light with in reach. Bed is low, wheels are locked, and bed alarm is set.
[2019-06-12 22:00] VITALS: BP 100/68
--- NOTE | 2019-06-12 22:50 | NUR ---
Emptied 600ml greenish /black fluid -see I&O. Upon checking to see if tubing is clamped properly pt states, "You don't follow orders very well do you?" Asked pt to explain and he responds, " This is supposed to drain for 2 hrs and then be clamped for 2 hrs and then drained for 2 hrs and then clamped for 2 hrs. " Unclamped the gastric tube and continued to drain at this time until 2330 and then will recheck at that time. Pt states that , " Yes, it's supposed to drain q 2hrs but only while awake. So, Do Not wake me up during the night. That's how we did it at [place]." Explained to pt that the order reads that we are to drain gastric tube every 2hrs and the pt states again, " Only while awake! Pt speaking in an angry tone.
[2019-06-13] VITALS (7 sets, daily range): BP systolic 91–119; BP diastolic 54–71
--- NOTE | 2019-06-13 01:30 | NUR ---
Gastric draining refused by pt for this time.
--- NOTE | 2019-06-13 03:29 | NUR ---
Pt c/o n/v and medicated with Zofran IVP per orders. Pt with about 200ml of clear greenish emesis. Tube feeding stopped at this time and residual checked and 10ml of aguilar fluid returned.
--- NOTE | 2019-06-13 03:30 | NUR ---
Draining gastric tube at this time.
[2019-06-13 05:46] LABS: Basophils # (auto) 0.1 uL; Basophils % (auto) 0.7 % (0.0-2.0); Eosinophils # (auto) 0.2 uL; Eosinophils % (auto) 2.5 % (0.0-7.0); Lymphocytes # (auto) 1.8 uL; Lymphocytes % (auto) 20.8 % (10.0-50.0); Mean Corpuscular Hemoglobin 31.3 pg (28.0-32.0); Mean Corpuscular Hgb Conc. 34.3 g/dL (32.0-36.0); Mean Corpuscular Volume 91.3 fL (80.0-100.0); Monocytes # (auto) 0.7 uL; Monocytes % (auto) 7.9 % (0.0-12.0); Neutrophils # (auto) 5.8 uL; Neutrophils % (auto) 68.1 % (37.0-80.0); Platelet Count (auto) 268 10^3/uL (140-450); Red Blood Cells 4.49 10^6/uL (4.5-5.90); Red Cell Distribution Width 14.6 % (11.8-14.3); White Blood Cell 8.5 10^3/uL (4.4-10.8)
[2019-06-13 06:00] LABS: Albumin 3.1 g/dL (3.4-5.0); Calcium 9.1 mg/dL (8.5-10.1); Potassium 4.6 mmol/L (3.5-5.1)
[2019-06-13 06:12] LABS: Total Protein 7.7 g/dL (6.4-8.2)
[2019-06-13] MEDS: SOD CHL 0.9%/ KCL 40MEQ 1,000 ML IV SCH ×2 (06:15→14:07)
--- NOTE | 2019-06-13 06:30 | NUR ---
Pt c/o SOB after standing up to use urinal and states that he needs oxygen. Pt SAO2= 93% on room air. O2 at 2L applied by nc and SAO2 up to 94%. Pt took some deep breaths and appeared to calm down. VSS= b/p 112/76, WE=851, RR= 22
--- NOTE | 2019-06-13 06:33 | NUR ---
Pt SAO2 = 96% , skin is warm dry and pink. No c/o SOb at this time and no s/s of any distress noted.
--- NOTE | 2019-06-13 07:15 | NUR ---
Opening Shift Note Assumed care of patient, awake and alert. No S/S of distress/SOB or pain. Instructed on POC and to call for assist PRN, will continue to monitor for changes Q1hr and PRN. Fall risk precautions in place per safety protocol. HOB elevated to 30 degrees. Attempted to drain GTube however, patient refused stating, "they just drained it." Will atte,pt again in two hours.
--- NOTE | 2019-06-13 09:00 | NUR ---
Gtube draining now.
[2019-06-13] MEDS: PANTOPRAZOLE 40 MG/10 ML VIAL INJ IV SCH ×2 (10:52→22:26)
--- NOTE | 2019-06-13 11:07 | NUR ---
Gtube output was 525mls. Color dark brown fluid.
--- NOTE | 2019-06-13 12:01 | NUR ---
Hospitalist at bedside MD Johnson at bedside, aware of patient status including patient request on 2 hour gtube drain 2 hour rest, 2 hours drain and 2 hour rest. Per . that is fine. No new orders received, Will cont to monitor patient.
--- NOTE | 2019-06-13 12:52 | NUR ---
Draining gastric tube at this time.
--- NOTE | 2019-06-13 14:00 | NUR ---
Gtube output was 100mls. Color dark brown fluid.
--- NOTE | 2019-06-13 16:00 | NUR ---
GTube draining at this time.
[2019-06-13] MEDS ORDERED: SODIUM CHLORIDE 0.9% 1,000 ML IV ONE (17:45)
[2019-06-13] MEDS: SODIUM CHLORIDE 0.9% 1,000 ML IV SCH (17:45)
--- NOTE | 2019-06-13 18:00 | NUR ---
Gtube output was 450mls. Color dark brown fluid.
--- NOTE | 2019-06-13 19:00 | NUR ---
OPENING NOTE- NOC SHIFT PATIENT IS ALERT AND ORIENTED X4, ANSWERS IN COMPLETE SENTENCES AND MAKES APPROPRIATE EYE CONTACT. PATIENT IS SITTING UP IN BED, BED IS LOCKED AT LOWEST POSITION, BED RAILS UP X2 AND HEAD OF BED IS UP >30 DEGREES FOR SAFETY PRECAUTIONS. PATIENT IS AWARE THAT HE IS NPO. PATIENT HAS GTUBE THAT PATIENT DRAINS ON HIS OWN. JEVITY IS RUNNING AT 50 MLS PER HOURS VIA [employer]. PATIENT DENIES PAIN AT THIS TIME. NO S/SX OF DISTRESS, SOB OR PAIN. BEDSIDE TABLE WITHIN REACH, CALL LIGHT WITHIN REACH, ALL PERSONAL BELONGINGS WITHIN REACH. DISCUSSED POC WITH PATIENT AND INSTRUCTED PATIENT TO CALL PRN; PATIENT VERBALIZED UNDERSTANDING. WILL CONTINUE TO MONITOR Q1H AND PRN.
--- NOTE | 2019-06-13 19:15 | NUR ---
Care endorsed care endorsed to night PATRICIA Walters. Patient resting in bed, no signs of distress, sob, or pain noted at this time.
--- NOTE | 2019-06-13 22:00 | NUR ---
GTUBE DRAINING AT THIS TIME.
--- NOTE | 2019-06-13 23:00 | NUR ---
GTUBE DRAIN 1000 MLS DARK GREEN FLUID. NO CLOTS.
--- NOTE | 2019-06-14 02:05 | NUR ---
G TUBE DRAINING AT THIS TIME
[2019-06-14] MEDS: SODIUM CHLORIDE 0.9% 1,000 ML IV SCH ×2 (02:16→09:12)
--- NOTE | 2019-06-14 03:00 | NUR ---
650 MLS DRAINED FROM GTUBE. DARK GREEN FLUID.
[2019-06-14 05:00] VITALS: BP 113/68
[2019-06-14 05:42] LABS: Basophils # (auto) 0.1 uL; Basophils % (auto) 0.4 % (0.0-2.0); Eosinophils # (auto) 0.2 uL; Eosinophils % (auto) 1.2 % (0.0-7.0); Hemoglobin 13.2 g/dL (13.5-17.5); Lymphocytes # (auto) 1.8 uL; Lymphocytes % (auto) 14.6 % (10.0-50.0); Mean Corpuscular Hemoglobin 30.5 pg (28.0-32.0); Mean Corpuscular Hgb Conc. 33.1 g/dL (32.0-36.0); Mean Corpuscular Volume 92.2 fL (80.0-100.0); Monocytes # (auto) 0.7 uL; Monocytes % (auto) 5.8 % (0.0-12.0); Neutrophils # (auto) 9.7 uL; Platelet Count (auto) 227 10^3/uL (140-450); Red Blood Cells 4.34 10^6/uL (4.5-5.90); Red Cell Distribution Width 14.9 % (11.8-14.3); White Blood Cell 12.4 10^3/uL (4.4-10.8)
[2019-06-14 06:11] LABS: Potassium 3.6 mmol/L (3.5-5.1)
[2019-06-14 06:20] LABS: Albumin 2.8 g/dL (3.4-5.0); BUN/Creatinine Ratio 22.1; Bilirubin, Total 1.1 mg/dL (0.2-1.0); Calcium 8.8 mg/dL (8.5-10.1); Magnesium 2.6 mg/dL (1.6-2.6); Total Protein 7.3 g/dL (6.4-8.2)
--- NOTE | 2019-06-14 06:58 | NUR ---
CLOSING NOTE- NOC SHIFT PATIENT IS RESTING IN BED. NO S/SX OF DISTRESS, SOB OR PAIN. PATIENT IS RECEIVING JEVITY FEEDING AT 50 MLS. GTUBE HAS BEEN DRAINING PROPERLY. WILL ENDORSE PATIENT CARE TO DAY SHIFT RN.
--- NOTE | 2019-06-14 07:25 | NUR ---
Opening Shift Note Assumed care of patient, awake and alert. No S/S of distress/SOB, no pain noted or reported at this time. Updated on POC and instructed to call for assistance as needed, patient verbalized understanding. Bed locked in lowest position, side rails up x2, call light within reach. Patient draining G tube, will call when completed to be drained. Will continue to monitor for changes Q1hr and PRN.
[2019-06-14 09:00] VITALS: BP 106/71
[2019-06-14] MEDS: PANTOPRAZOLE 40 MG/10 ML VIAL INJ IV SCH (09:10)
--- NOTE | 2019-06-14 10:03 | NUR ---
725 MLS DRAINED FROM GTUBE. DARK GREEN FLUID.
[2019-06-14 11:59] VITALS: BP 106/71
[2019-06-14 13:00] VITALS: BP 103/69
--- NOTE | 2019-06-14 13:15 | NUR ---
600 MLS DRAINED FROM GTUBE. DARK GREEN FLUID.
--- NOTE | 2019-06-14 13:45 | NUR ---
Discharge home Discharge instructions given as ordered. Encourage to follow up with PMD and [facility] as instructed. All questions and concerns addressed. Patient verbalized understanding. Medication reconciliation form completed and copy given to patient. IV removed with catheter intact, pressure dressing applied. G-Tube disconnected from feeding, attempted to flush with sterile water, unsuccessful flushing. Patient states that it is fine he will handle it when he gets home. Telemetry unit returned to ICU. Patient taken to [facility] with voucher for home, via wheelchair with all personal belongings, accompanied by staff. No distress noted at time of departure.
--- NOTE | 2019-06-14 17:06 | NUR ---
assessment Patient has no post discharge needs identified. Addendum: 06/14/19 at 1706 by Jhoana WOODRUFF Amended: Links added.
== END 2019-06-14 13:45 | disposition home or self-care (01) | DRG 469 ==
LOC: EDUNIT# 12:36 → EDBD 12:36 → ER 12:36 → TELE 12:37 → TELE-WESTW 18:52
PROVIDERS: ADMIT Nurse Practitioner Acute Care; ATTEND Internal Medicine
DX: N17.0 Acute kidney failure with tubular necrosis (principal); E43 Unspecified severe protein-calorie malnutrition; E11.21 Type 2 diabetes mellitus with diabetic nephropathy; C25.1 Malignant neoplasm of body of pancreas; K86.1 Other chronic pancreatitis; E11.65 Type 2 diabetes mellitus with hyperglycemia; E87.1 Hypo-osmolality and hyponatremia; R65.10 Systemic inflammatory response syndrome (SIRS) of non-infectious origin without acute organ dysfunction; E86.0 Dehydration; E87.6 Hypokalemia; D72.829 Elevated white blood cell count, unspecified; R79.89 Other specified abnormal findings of blood chemistry; I10 Essential (primary) hypertension; Z93.1 Gastrostomy status
CPT/HCPCS: 36415; 36600; 71045; 76775; 80048; 80053; 81001; 82150; 82533; 82570; 82805; 83605; 83690; 83735; 83930; 84100; 84133; 84300; 84443; 84484; 85025; 85610; 85730; 86301; 87040; 87081; 96361; 96365; 96375; 97163; C9113; G0378; J2001; J2405; J2543; J3480; J3490

== ENCOUNTER 2020-05-03 11:46 | Emergency (ER) | payer OTHER ==
[~2020-05-03] VITALS: Ht 188 cm; Wt 94.3 kg
[~2020-05-03 11:46] MED LIST changes: -DOCU100T15 PO
[2020-05-03 13:10] LABS: Basophils # (auto) 0 10 ^3/uL (0-0.2); Basophils % (auto) 0.8 % (0.0-2.0); Eosinophils # (auto) 0.2 10 ^3/uL (0-0.8); Eosinophils % (auto) 4.4 % (0.0-7.0); Monocytes # (auto) 0.3 10 ^3/uL (0-1.3); Red Blood Cells 1.81 10^6/uL (4.5-5.90)
[2020-05-03 13:14] LABS: Hematocrit 17.8 % (41.0-53.0); Lymphocytes # (auto) 0.4 10 ^3/uL (0.4-5.4); Mean Corpuscular Hemoglobin 33.7 pg (28.0-32.0); Mean Corpuscular Hgb Conc. 34.2 g/dL (32.0-36.0); Mean Corpuscular Volume 98.3 fL (80.0-100.0); Monocytes % (auto) 9.7 % (0.0-12.0); Neutrophils # (auto) 2.5 10 ^3/uL (1.6-8.6); Neutrophils % (auto) 72.1 % (37.0-80.0); Nucleated Red Blood Cells % 0.1 %; Platelet Count (auto) 100 10^3/uL (140-450); Red Cell Distribution Width 19.6 % (11.8-14.3); White Blood Cell 3.4 10^3/uL (4.4-10.8)
[2020-05-03 13:31] LABS: Hemoglobin 6.1 g/dL (13.5-17.5)
[2020-05-03 13:32] LABS: Albumin 2.7 g/dL (3.4-5.0); BUN/Creatinine Ratio 19.6; Calcium 8.1 mg/dL (8.5-10.1); Potassium 3.8 mmol/L (3.5-5.1)
[2020-05-03 13:35] LABS: Bilirubin, Total 0.3 mg/dL (0.2-1.0); Total Protein 5.3 g/dL (6.4-8.2)
[2020-05-03 19:38] LABS: INR 1.01 (0.9-1.15); Partial Thromboplastin Time 24.8 sec (23.0-31.2)
[2020-05-03 21:45] VITALS: BP 105/52
[2020-05-03 22:05] VITALS: BP 110/59
[2020-05-03] MEDS ORDERED: HYDROcodone-ACET 7.5/325MG TAB PO ONE (23:45)
[2020-05-03 23:50] VITALS: BP 122/58
[2020-05-04 00:10] VITALS: BP 122/58
[2020-05-04 02:17] VITALS: BP 115/68
[2020-05-04 02:31] VITALS: BP 115/68
== END 2020-05-04 03:00 | disposition home or self-care (01) ==
LOC: ER 11:46
DX: D64.9 Anemia, unspecified (principal); D69.6 Thrombocytopenia, unspecified; I10 Essential (primary) hypertension; Z87.891 Personal history of nicotine dependence; Z90.49 Acquired absence of other specified parts of digestive tract
CPT/HCPCS: 36415; 36430; 71045; 80053; 83735; 85025; 85610; 85730; 86850; 86900; 86901; 86920; 93005; 99285; J7030; P9016